=== PATIENT | female | born 1995 | race Caucasian/White ===

== ENCOUNTER → 2019-05-13 | Outpatient (CLI) | payer OTHER, BC ==
[2019-05-14 00:03] LABS: Candida species (DNA Probe) Positive (NEGATIVE); G. vaginalis (DNA Probe) Negative (NEGATIVE); T. vaginalis (DNA Probe) Negative (NEGATIVE)
== END ==
LOC: LAB EV 08:22 → LAB SHORT 08:22
PROVIDERS: Nurse Practitioner Family
DX: Z01.419 Encounter for gynecological examination (general) (routine) without abnormal findings (principal); N89.9 Noninflammatory disorder of vagina, unspecified
CPT/HCPCS: 87480; 87510; 87660; G0145

== ENCOUNTER → 2020-05-24 | Outpatient (CLI) | payer OTHER, BC | LOC: LAB 15:31 → LAB SHORT 15:31 | PROVIDERS: Nurse Practitioner Family | DX: Z01.419 Encounter for gynecological examination (general) (routine) without abnormal findings (principal) | CPT/HCPCS: G0145 ==

== ENCOUNTER → 2022-03-28 | Outpatient (CLI) | payer OTHER, BC | END | disposition home or self-care (01) | LOC: LAB SHORT 19:07 → LAB 19:07 | DX: R30.9 Painful micturition, unspecified (principal) | CPT/HCPCS: 87086 ==

== ENCOUNTER 2025-03-10 23:32 | Inpatient (IN) | payer OTHER, BC ==
[~2025-03-10] VITALS: Ht 165.1 cm; Wt 70.0 kg
[2025-03-10 23:44] VITALS: BP 136/82
[2025-03-11] VITALS (17 sets, daily range): BP systolic 98–140; BP diastolic 42–78
[2025-03-11] MEDS ORDERED: Lactated Ringer's 1,000 ML IV ONE ×3 (00:10→01:25)
[2025-03-11] MEDS ORDERED: CORGARD80 MG PO (00:27)
[2025-03-11] MEDS ORDERED: Acetaminophen 500 MG Tab PO PRN ×2 (00:50→02:45)
[2025-03-11] MEDS ORDERED: FentaNYL 2mcg/ml-Bup 0.1% Epd 250 ML EPI PRN (00:50)
[2025-03-11] MEDS ORDERED: Calcium Carbonate 500 MG Tab Chew PO PRN (00:50)
[2025-03-11] MEDS ORDERED: Lactated Ringer's 1,000 ML IV PRN ×3 (00:50)
[2025-03-11] MEDS ORDERED: Misoprostol 200 MCG Tab BC PRN (00:50)
[2025-03-11] MEDS ORDERED: ePHEDrine Sulfate 50 MG/ML 1ML Injection XX PRN (00:50)
[2025-03-11] MEDS ORDERED: Misoprostol 200 MCG Tab PR PRN ×2 (00:50→02:45)
[2025-03-11] MEDS ORDERED: Carboprost Tromethamine 250 MCG/ML 1ML Amp IM PRN (00:50)
[2025-03-11] MEDS ORDERED: Methylergonovine Maleate 0.2MG / ML 1ML Amp IM PRN (00:50)
[2025-03-11] MEDS ORDERED: OXYTOCIN/RINGER'S LACTATE 500 ML IV PRN (00:50)
[2025-03-11] MEDS ORDERED: Oxytocin 10 Unit / ML Vial IM PRN (00:50)
[2025-03-11] MEDS ORDERED: Tranexamic Acid 100 ML IV PRN (00:50)
[2025-03-11 01:06] LABS: BASOPHILS ABSOLUTE AUTO 0.02 K/mm3 (0.00-0.23); BASOPHILS PERCENT AUTO 0 % (0-2); EOSINOPHILS ABSOLUTE AUTO 0.06 K/mm3 (0.00-0.68); EOSINOPHILS PERCENT AUTO 1 % (0-6); Hematocrit 36.2 % (33.0-51.0); Hemoglobin 12.1 g/dL (11.5-16.0); IMMATURE GRAN ABSOLUTE AUTO 0.03 K/mm3 (0.00-0.10); IMMATURE GRAN PERCENT AUTO 0 % (0-1); LYMPHOCYTES ABSOLUTE AUTO 2.18 K/mm3 (0.84-5.20); LYMPHOCYTES PERCENT AUTO 17 % (21-46); MONOCYTES ABSOLUTE AUTO 0.84 K/mm3 (0.16-1.47); MONOCYTES PERCENT AUTO 6 % (4-13); Mean Corpuscular HGB 30.8 pg (26.0-34.0); Mean Corpuscular HGB Conc 33.4 g/dL (31.5-36.5); Mean Corpuscular Volume 92 fL (80-100); Mean Platelet Volume 10.9 fL (9.1-12.4); NEUTROPHILS ABSOLUTE AUTO 9.97 K/mm3 (1.96-9.15); NEUTROPHILS PERCENT AUTO 76 % (41-73); Platelet Count 242 K/mm3 (150-400); RDW Coefficient Variation 12.6 % (11.7-14.2); RDW Standard Deviation 42.7 fL (35.1-46.3); Red Blood Cell Count 3.93 M/mm3 (3.80-5.20)
[2025-03-11] MEDS ORDERED: Lactated Ringer's 1,000 ML IV SCH ×2 (01:10→02:45)
[2025-03-11] MEDS ORDERED: CeFAZolin Sodium 2,000 MG in NS 100 ML IV SCH (01:10)
[2025-03-11] MEDS ORDERED: Metoclopramide HCl 5MG / ML 2ML Vial ONE (01:21)
[2025-03-11] MEDS ORDERED: Citric Acid/Sodium Citrate 30 ML BTL ONE (01:22)
[2025-03-11] MEDS ORDERED: Ketamine HCl 100 MG / ML 5ML Vial ONE (01:45)
[2025-03-11] MEDS ORDERED: Oxytocin 10 Unit / ML Vial ONE (01:46)
[2025-03-11] MEDS ORDERED: Ketorolac Tromethamine 30mg Vial ONE (01:46)
--- NOTE | 2025-03-11 02:17 | NUR ---
03/11/25 0217 Zeinab Parker VIABLE BABY BOY BORN AT 0149.
[2025-03-11] MEDS ORDERED: HYDROmorphone HCl/Pf 1MG SYR IV PRN (02:20)
[2025-03-11] MEDS ORDERED: FentaNYL Citrate 50 MCG/ML 2 ML Injection IV PRN ×3 (02:20)
[2025-03-11 02:21] LABS: pH Cord - Arterial 7.04 (7.28-7.35)
[2025-03-11 02:22] LABS: PO2 Cord - Arterial < 14.0 mmHg (16-20)
[2025-03-11 02:23] LABS: PCO2 Cord - Venous 49.1 mmHg (40-50); PO2 Cord - Venous 27.5 mmHg (28-32)
[2025-03-11] MEDS ORDERED: OxyCODONE HCL 5 MG TAB PO PRN (02:40)
[2025-03-11] MEDS ORDERED: Lanolin Cream TOP PRN (02:40)
[2025-03-11] MEDS ORDERED: OXYTOCIN/RINGER'S LACTATE 500 ML IV SCH (02:45)
[2025-03-11] MEDS ORDERED: Simethicone 80 MG Chew PO PRN (02:45)
[2025-03-11] MEDS ORDERED: OxyCODONE 5 mg/Acetamin 325 mg TABLET PO PRN (02:45)
[2025-03-11] MEDS ORDERED: Ketorolac Tromethamine 30mg Vial IV SCH (03:00)
[2025-03-11 06:26] LABS: BASOPHILS ABSOLUTE AUTO 0.02 K/mm3 (0.00-0.23); BASOPHILS PERCENT AUTO 0 % (0-2); EOSINOPHILS ABSOLUTE AUTO 0.01 K/mm3 (0.00-0.68); EOSINOPHILS PERCENT AUTO 0 % (0-6); Hematocrit 32.5 % (33.0-51.0); Hemoglobin 10.8 g/dL (11.5-16.0); IMMATURE GRAN ABSOLUTE AUTO 0.06 K/mm3 (0.00-0.10); IMMATURE GRAN PERCENT AUTO 0 % (0-1); LYMPHOCYTES ABSOLUTE AUTO 1.37 K/mm3 (0.84-5.20); LYMPHOCYTES PERCENT AUTO 9 % (21-46); MONOCYTES PERCENT AUTO 6 % (4-13); Mean Corpuscular HGB 30.4 pg (26.0-34.0); Mean Corpuscular HGB Conc 33.2 g/dL (31.5-36.5); Mean Corpuscular Volume 92 fL (80-100); Mean Platelet Volume 10.7 fL (9.1-12.4); NEUTROPHILS ABSOLUTE AUTO 12.57 K/mm3 (1.96-9.15); NEUTROPHILS PERCENT AUTO 84 % (41-73); Platelet Count 215 K/mm3 (150-400); RDW Coefficient Variation 12.6 % (11.7-14.2); RDW Standard Deviation 42.2 fL (35.1-46.3); Red Blood Cell Count 3.55 M/mm3 (3.80-5.20); White Blood Cell Count 14.93 K/mm3 (4.00-11.30)
[2025-03-11] MEDS ORDERED: Ibuprofen 400 MG Tab PO SCH (08:00)
[2025-03-11] MEDS ORDERED: Docusate Sodium 100 MG Cap PO SCH (09:00)
[2025-03-11] MEDS ORDERED: Prenatal Vit/FE Fumarate/FA 1 Tab PO SCH (09:00)
[2025-03-12 03:22] VITALS: BP 101/57
[2025-03-12 08:23] VITALS: BP 112/58
[2025-03-12] MEDS ORDERED: Polyethylene Glycol 3350 17 gm PO ONE (08:50)
[2025-03-12 11:12] VITALS: BP 107/78
[2025-03-12 18:37] VITALS: BP 112/56
[2025-03-12 20:19] VITALS: BP 118/63
[2025-03-12 23:47] VITALS: BP 111/67
[2025-03-13 05:54] VITALS: BP 108/66
[2025-03-13 08:46] VITALS: BP 124/59
[2025-03-13 11:33] VITALS: BP 139/63
[2025-03-13] MEDS ORDERED: Percocet 5-3251 EACH PO (13:47)
[2025-03-13] MEDS ORDERED: PRENATAL TABLE1 EAC2 PO (13:47)
[2025-03-13] MEDS ORDERED: IBUP800 PO (13:47)
[2025-03-13 15:59] VITALS: BP 126/65
== END 2025-03-13 16:09 | disposition home or self-care (01) | DRG 785 ==
LOC: OBS 23:32 → BC 23:34 → OBS 03-11 00:54 → BC 03-11 00:54
PROVIDERS: ADMIT Obstetrics & Gynecology
PROC: 10D00Z1 Extraction of Products of Conception, Low, Open Approach (ICD-10-PCS; principal; 2025-03-11 09:00)
PROC: 0UT70ZZ Resection of Bilateral Fallopian Tubes, Open Approach (ICD-10-PCS; 2025-03-11 09:00)
DX: O69.81X0 Labor and delivery complicated by cord around neck, without compression, not applicable or unspecified (principal); Z30.2 Encounter for sterilization; Z3A.37 37 weeks gestation of pregnancy; Z37.0 Single live birth
CPT/HCPCS: 36415; 59025; 81003; 82803; 85025; 86850; 86900; 86901; 86920; 88302; 99214; A9270; J0690; J1885; J2590; J7120

== ENCOUNTER 2025-03-19 15:13 | Inpatient (IN) | payer OTHER, BC ==
[~2025-03-19] VITALS: Ht 165.1 cm; Wt 66.0 kg
[2025-03-19] VITALS (10 sets, daily range): BP systolic 110–144; BP diastolic 62–84
[~2025-03-19 15:13] MED LIST: CORGARD80 MG PO; IBUP800 PO; PRENATAL TABLE1 EAC2 PO; Percocet 5-3251 EACH PO
[2025-03-19] MEDS ORDERED: Labetalol HCL 5 MG/ML 20MLVIAL IV STA (16:03)
[2025-03-19] MEDS ORDERED: Labetalol HCL 5 MG/ML 20MLVIAL IV SCH (16:05)
[2025-03-19] MEDS ORDERED: Labetalol HCL 5 MG/ML 4ML Injection (Single Dose) IV STA (16:08)
[2025-03-19] MEDS ORDERED: Labetalol HCL 5 MG/ML 4ML Injection (Single Dose) IV SCH (16:10)
[2025-03-19 16:20] LABS: BASOPHILS ABSOLUTE AUTO 0.05 K/mm3 (0.00-0.23); BASOPHILS PERCENT AUTO 1 % (0-2); EOSINOPHILS ABSOLUTE AUTO 0.08 K/mm3 (0.00-0.68); EOSINOPHILS PERCENT AUTO 1 % (0-6); Hemoglobin 12.2 g/dL (11.5-16.0); IMMATURE GRAN ABSOLUTE AUTO 0.04 K/mm3 (0.00-0.10); IMMATURE GRAN PERCENT AUTO 1 % (0-1); LYMPHOCYTES ABSOLUTE AUTO 2.21 K/mm3 (0.84-5.20); LYMPHOCYTES PERCENT AUTO 28 % (21-46); MONOCYTES ABSOLUTE AUTO 0.49 K/mm3 (0.16-1.47); MONOCYTES PERCENT AUTO 6 % (4-13); Mean Corpuscular HGB 30.5 pg (26.0-34.0); Mean Corpuscular Volume 93 fL (80-100); Mean Platelet Volume 10.4 fL (9.1-12.4); NEUTROPHILS ABSOLUTE AUTO 5.15 K/mm3 (1.96-9.15); NEUTROPHILS PERCENT AUTO 64 % (41-73); Platelet Count 407 K/mm3 (150-400); RDW Coefficient Variation 12.2 % (11.7-14.2); RDW Standard Deviation 41.2 fL (35.1-46.3); White Blood Cell Count 8.02 K/mm3 (4.00-11.30)
[2025-03-19 16:23] LABS: Albumin, Blood 3.7 g/dL (3.4-5.0); Albumin/Globulin Ratio 0.9 (0.8-1.8); Bilirubin, Total 0.3 mg/dL (0.1-1.0); Bun/Creatinine Ratio 20.9 (12.0-20.0); Calcium, Blood 9.7 mg/dL (8.5-10.1); Creatinine, Blood 0.86 mg/dL (0.40-1.00); Globulin, Blood 4.3 g/dL (2.2-4.0); Magnesium, Blood 2.2 mg/dL (1.6-2.4); Potassium, Blood 3.9 mmol/L (3.5-5.5)
[2025-03-19 17:36] LABS: Source, Urine Clean Catch
[2025-03-19 17:41] LABS: Appearance, Urine Clear (Clear); Bilirubin, Urine Neg (Neg); Blood, Urine 5+ (Neg); Glucose Qualitative, Urine Neg (Neg); Ketones, Urine Neg (Neg); Leukocyte Esterase, Urine 1+ (Neg); Nitrite, Urine Neg (Neg); Protein, Urine Neg (Neg); Specific Gravity, Urine 1.015 (1.003-1.022); Urobilinogen, Urine NORM (Normal)
[2025-03-19] MEDS ORDERED: Magnesium Sulf 2 GM/Water 50ML 50 ML IV SCH (18:15)
[2025-03-19] MEDS ORDERED: Calcium Gluconate 0.465 mEq/ml 10 ml Vial IV PRN ×2 (18:15→19:35)
[2025-03-19] MEDS ORDERED: Lactated Ringer's 1,000 ML IV SCH ×2 (18:15→19:35)
[2025-03-19] MEDS ORDERED: Magnesium Sulfate 500 ML IV SCH (18:15)
[2025-03-19] MEDS ORDERED: Magnesium Sul 4 GM/Water100 ML 100 ML IV ONE ×2 (18:15→18:18)
[2025-03-19] MEDS ORDERED: Magnesium Sulfate 500 ML IV ONE (18:19)
[2025-03-19 18:35] LABS: Color, Urine Pale Yellow (P-Yellow)
[2025-03-19 18:38] LABS: Squamous Epithelial Cells Rare /hpf (Few)
[2025-03-19 18:40] LABS: Bacteria Rare /hpf; Mucus Light (0-Heavy)
[2025-03-19 18:41] LABS: Hyaline Casts 0-2 /lpf (0-2)
[2025-03-19] MEDS ORDERED: Labetalol HCL 5 MG/ML 4ML Injection (Single Dose) IV ONE (19:35)
[2025-03-19] MEDS ORDERED: Labetalol HCL 5 MG/ML 4ML Injection (Single Dose) IV PRN ×2 (19:35)
--- NOTE | 2025-03-19 20:12 | NUR ---
RN CALLED [facility] AFTER PLACING CONT SINGER AND UNLOADER ON PT, TELE REPORTS NSR WITH A RATE OF 70 BPM AND RN REPORTED TO TAX FORM PREPARER THAT THE PT DOES HAVE A PACEMAKER.
[2025-03-19] MEDS ORDERED: Acetaminophen 500 MG Tab PO PRN (21:45)
[2025-03-19] MEDS ORDERED: Ibuprofen 400 MG Tab PO PRN (21:45)
[2025-03-20] VITALS (22 sets, daily range): BP systolic 107–154; BP diastolic 62–100
--- NOTE | 2025-03-20 00:41 | NUR ---
KELSEY FROM TELE CALLED RN AT APPROX 0020 TO REPORT THAT PT'S PROLONGATION IS AT .61 (610). RN THEN WENT TO PT'S ROOM AND INQUIRED IF SHE KNEW HER BASELINE PROLONGATION WAS. PT REPORTED HER PROLONGATION WAS [phone]. RN THEN CALLED DR JOHNSON FOR AN SBAR. NEW ORDERS TO LOWER MAG INFUSION TO 1G FROM 2G AND THE SHE COULD CONSULT THE MULTIPLE COIL WINDER IN THE AM. AFTER RN CHANGED INFUSIUON RATE, RN CALLED ICU CHARGE NURSE CATHERINE AND CONSULTED HER ABOUT THE SITUATION. ICU CHARGE NURSE NOT ALARMED BUT WARDS TO WATCH PT CLOSELY FOR ANY NEW CONCERNING SIGNS/SYMPTOMS AND THAT ICU COULD CONSULT THE MULTIPLE COIL WINDER IF WOULD PLACE A CARDIO REFFERAL.
--- NOTE | 2025-03-20 00:55 | NUR ---
RN HAD DISCUSSION WITH PT ABOUT REPORTING ANY NEW SIGNS OR SYMPTOMS THAT MAY HAPPEN. RN TOLD PT THAT THERE IS A LOADING SUPERVISOR IN HOUSE THAT WOULD LOOK AT HER CASE IF DR JOHNSON DID END UP ORDERING A REFFERAL TONIGHT. PT VERBALIZES UNDERSTANDING TO REPORT ANY NEW SIGNS OR SYMPTOMS TO RN.
--- NOTE | 2025-03-20 06:32 | NUR ---
call up to cable television program director to see what prolongation is: .61 this is the same measurement as middle of noc shift on 03/20/25
--- NOTE | 2025-03-20 13:17 | NUR ---
PT WALKED JOYCE WITH RN. PT STATES SHE FEELS OKAY JUST A LITTLE SLUGGISH. PT DID NOT EXPERINCE ANY SOB OR DIZZNESS WHILE WALKING.
--- NOTE | 2025-03-20 14:25 | NUR ---
ARRIVAL PATIENT ARRIVES TO UNIT VIA WHEELCHAIR AND AMBULATED OVER TO BED WITHOUT NEEDING TO MUCH HELP. VITAL SIGNS TAKEN, BLOOD PRESSURE ELVATED WITH 154/85 106 MAP. PATIENT IS ANXIOUS AND AT THE EDGE OF THE BED. HAS NOTIFIED FAMILY ABOUT THE MOVE.
--- NOTE | 2025-03-20 14:35 | NUR ---
PATIENT CALLED NURSE INTO ROOM STATING SHE IS FEELING SOME PVC. FORK ASSEMBLER CALLED AND NO PVC WERE NOTED PT WAS SINUS RHYTHM IN THE 60'S WITH QT INTERVAL OF .56. AT 1354 FORK ASSEMBLER CALLED BACK AND PATIENT HAD COUPLETS AND A RUN OF PVC. AT 1356 FORK ASSEMBLER CALLED BACK AND STATE PT HAD A RUN OF V-TACH. DR JOHNSON NOTIFIED, WHEN ON THE PHONE FORK ASSEMBLER CALLED AND STATE PATIENT HAD ANOTHER RUN OF V-TACH. DR JOHNSON GAVE ORDER FOR PT TO BE TRANSFERED TO PCU AND FOR A CARDIOLOGY CONSULT. PT TRANSFERED UP TO PCU IN WHEELCHAIR TO PCU 15 AND BEDSIDE REPORT GIVEN TO RN.
--- NOTE | 2025-03-20 15:39 | NUR ---
MD ROUNDED: DIRECTOR SEARCH MARKETING STRATEGIES ROUNDED AND ORDERED EKG & ECHO TO BE DONE. MD STATED ANY PROBLEMS REGARIDNG PATIENTS BLOOD PRESSURE TO NOTIFY ISAIAH, PRIMARY OBGYN SHE WILL MAKE THE DECISION TO ADD ANY NEEDED BLOOD PRESSURE MEDICATINS.
--- NOTE | 2025-03-20 16:53 | NUR ---
SHIFT SUMMARY: PATIENT ARRIVES TO UNIT VIA WHEELCHAIR AND FAMILY AT BEDSIDE. PATIENT ANXIOUS UPON ARRIVAL AND ASKING WHAT THE GAME PLAN IS MOVING FORWARD. PATIENT BLOOD PRESSURE CYCLING AND LEVELING OUT WITH SYSTOLIC IN 120'S. PATIENT WAS SEEN BY SUPERVISOR THROWING DEPARTMENT, SEE NOTE FOR MORE INFORMATION. OB WILL BE CONTACTED IF BLOOD PRESSURE CONTINUES TO BE ELEVATED. [facility] CAME BY AND CHATED WITH PATIENT & FAMILY. PLAN WILL BE TO CONTINUE TO MONITOR, PATIENT HAS CALL LIGHT WITHIN REACH & BED IN LOWEST POSITION, STATING NOTHING IS NEEDED AT THIS TIME.
--- NOTE | 2025-03-20 21:52 | NUR ---
NURSE NOTE DR. GUILLEN CALLED VIA PHONE REQUEST THIS RN TO GIVE 80 MG NADOLOL NOW INSTEAD OF WAITING UNTIL 0000 MIDNIGHT DOES. PATIENT TO REPEAT 80MG DOSE AT 0900 AND 2100 STARTING TOMORROW 03/21 AND FOLLOW THAT SCHEDULE FOR THIS HOME MEDICATION. PT IS HAVINF FREQUENT PVC'S (BIGEMINY), RUNS OF VTACH, AND INCREASE IN HEART RATE ABOVE 130. PATIENT STATES SHE FEELS FINE AT THIS MOMENT AND WAS SLEEPING WHEN THIS RN ENTERED THE ROOM TO GIVE NADOLOL.
[2025-03-21] VITALS (13 sets, daily range): BP systolic 92–141; BP diastolic 62–91
--- NOTE | 2025-03-21 02:10 | NUR ---
NURSE NOTE PATIENT UP TO BATHROOM AMBULATING WITH LITTLE ASSISTANCE DUE TO LINES. HR IN THE 60'S CURRENTLY. PT DENIES PAIN OF ANY KIND. BP STABLE LAST OF 108/67 MAP 81. AMRIK PO INTAKE, URINATING W/O DIFFICULTY. LR INFUSING PER EMAR. PT CURRENTLY SITTING UP IN BED ON HER CELL PHONE NOW. BED IN LOWEST POSTION FOR SAFETY, CALL LIGHT IN REACH.
--- NOTE | 2025-03-21 05:36 | NUR ---
NURSE NOTE HEAD HOLDER GLADYS ALERTED BREAK NURSE TO PT HAVING A 26 BEAT RUN OF V-TACH. PATIENT IS SLEEPING WHEN THIS RN WENT TO ASSESS PT. LAST BP OF 105/65 MAP OF 74. AFTER RUN OF V-TACH PT WENT BACK INTO SINUS AT A RATE OF 69 CURRENTLY.
--- NOTE | 2025-03-21 06:24 | NUR ---
NURSE NOTE MD GUILLEN ROUNDED ON PT THIS AM TO MAKE MEDICATION ADJUSTMENTS. SIGNED OFF FROM A CARDIOLOGY STAND POINT.
[2025-03-21] MEDS ORDERED: NADOLOL 80 MG PO SCH (09:00)
[2025-03-21] MEDS ORDERED: Potassium Chloride 20 MEQ TabCR PO ONE (12:10)
--- NOTE | 2025-03-21 17:58 | NUR ---
SHIFT SUMMARY: PT A&OX4 CALM AND COOPERATIVE. MAINTAINING >94% ON RA. SR 90S WITH OCCASIONAL PVCS AND RUNS OF VTACH. DR. FALLON ADJUSTED HOME MED TO 120MG BID. SBP 120S-140S. MEDICATED PER EMAR. 1 WEEK SLIGHT HEMATURIA. IND TO BATHROOM. CALLS APPROPRIATELY. LR INFUSING 75/HR. BED IS LOW AND LOCKED. WILL CONTINUE PLAN OF CARE UNTIL REPORT GIVEN TO NOC NURSE.
[2025-03-21] MEDS ORDERED: NIFEdipine 10 MG Cap PO ONE (18:40)
[2025-03-22 04:08] VITALS: BP 124/87
[2025-03-22 04:56] LABS: Bun/Creatinine Ratio 13.8 (12.0-20.0); Creatinine, Blood 0.87 mg/dL (0.40-1.00); Potassium, Blood 4.2 mmol/L (3.5-5.5)
--- NOTE | 2025-03-22 06:17 | NUR ---
SHIFT SUMMARY PATIENT A&OX4. VITAL SIGNS STABLE. PATIENT STATED HAVING A HEADACHE, MEDICATED PER EMAR. PATIENT ON ROOM AIR. WILL CONTINUE TO MONITOR.
[2025-03-22 08:04] VITALS: BP 143/88
[2025-03-22 11:30] VITALS: BP 123/85
--- NOTE | 2025-03-22 14:51 | NUR ---
SHIFT SUMMARY: PT A&OX4 CALM AND COOPERATIVE. SR 60S. SBP 110S-120S. MAINTAINING >94% ON ROOM AIR. INDEPENDENT TO BATHROOM. USES CALL LIGHT APPROPRIATELY. NO RUNS OF VTACH DURING SHIFT. PT EDUCATED ON DISCHARGE AND MEDS SENT TO REQUESTD PHARMACY. PT VERBALIZED EDUCATION AND DISCHARGED WITH PRESENT.
== END 2025-03-22 14:32 | disposition home or self-care (01) | DRG 776 ==
LOC: ER 15:13 → BC 17:57 → PCU 17:57 → BC 19:59 → PCU 03-20 14:13
PROVIDERS: Internal Medicine Cardiovascular Disease; Student in an Organized Health Care Education/Training Program; ADMIT Obstetrics & Gynecology
DX: O99.43 Diseases of the circulatory system complicating the puerperium (principal); I47.20 Ventricular tachycardia, unspecified; I45.81 Long QT syndrome; O99.345 Other mental disorders complicating the puerperium; F41.1 Generalized anxiety disorder; O14.95 Unspecified pre-eclampsia, complicating the puerperium; Z95.810 Presence of automatic (implantable) cardiac defibrillator; Z88.8 Allergy status to other drugs, medicaments and biological substances
CPT/HCPCS: 36415; 80048; 80053; 81001; 83615; 83735; 85025; 86850; 86900; 86901; 86923; 93005; 93010; 93306; 96374; 96376; 99285-25; A9270; J3475; J7120

== ENCOUNTER 2025-03-22 19:40 | Observation (INO) | payer OTHER, BC ==
[~2025-03-22] VITALS: Ht 165.1 cm; Wt 63.4 kg
[2025-03-22 20:35] LABS: BASOPHILS ABSOLUTE AUTO 0.07 K/mm3 (0.00-0.23); BASOPHILS PERCENT AUTO 1 % (0-2); EOSINOPHILS PERCENT AUTO 1 % (0-6); Hematocrit 37.1 % (33.0-51.0); Hemoglobin 12.6 g/dL (11.5-16.0); IMMATURE GRAN ABSOLUTE AUTO 0.03 K/mm3 (0.00-0.10); IMMATURE GRAN PERCENT AUTO 0 % (0-1); LYMPHOCYTES ABSOLUTE AUTO 2.67 K/mm3 (0.84-5.20); LYMPHOCYTES PERCENT AUTO 25 % (21-46); MONOCYTES ABSOLUTE AUTO 0.65 K/mm3 (0.16-1.47); MONOCYTES PERCENT AUTO 6 % (4-13); Mean Corpuscular HGB 31.1 pg (26.0-34.0); Mean Corpuscular Volume 92 fL (80-100); Mean Platelet Volume 9.6 fL (9.1-12.4); NEUTROPHILS ABSOLUTE AUTO 7.17 K/mm3 (1.96-9.15); NEUTROPHILS PERCENT AUTO 67 % (41-73); Platelet Count 366 K/mm3 (150-400); RDW Coefficient Variation 12.2 % (11.7-14.2); RDW Standard Deviation 41.1 fL (35.1-46.3); Red Blood Cell Count 4.05 M/mm3 (3.80-5.20); White Blood Cell Count 10.69 K/mm3 (4.00-11.30)
[2025-03-22 20:54] LABS: Albumin, Blood 3.6 g/dL (3.4-5.0); Albumin/Globulin Ratio 0.9 (0.8-1.8); Bilirubin, Total 0.3 mg/dL (0.1-1.0); Bun/Creatinine Ratio 15.7 (12.0-20.0); Calcium, Blood 9.1 mg/dL (8.5-10.1); Creatinine, Blood 0.89 mg/dL (0.40-1.00); Globulin, Blood 3.9 g/dL (2.2-4.0); Magnesium, Blood 2.1 mg/dL (1.6-2.4); Potassium, Blood 3.9 mmol/L (3.5-5.5); Total Protein, Blood 7.5 g/dL (6.4-8.2)
[2025-03-22 21:22] LABS: Source, Urine Clean Catch
[2025-03-22 21:39] LABS: Appearance, Urine Hazy (Clear); Bilirubin, Urine Neg (Neg); Blood, Urine 5+ (Neg); Color, Urine Red (P-Yellow); Glucose Qualitative, Urine Neg (Neg); Ketones, Urine Neg (Neg); Leukocyte Esterase, Urine 3+ (Neg); Nitrite, Urine Pos (Neg); Protein, Urine 2+ (Neg); Specific Gravity, Urine 1.015 (1.003-1.022); Urobilinogen, Urine NORM (Normal); pH, Urine 6.5 (5.0-8.0)
[2025-03-22 21:47] LABS: Amorphous Light (0-Heavy); Bacteria Few /hpf; Red Blood Cells, Urine TNTC /hpf (0-2); Squamous Epithelial Cells Rare /hpf (Few)
[2025-03-22] MEDS ORDERED: MAGNESIUM SULF IV ONE (22:35)
[2025-03-22] MEDS ORDERED: Labetalol HCL 5 MG/ML 4ML Injection (Single Dose) IV ONE ×2 (22:35→23:20)
[2025-03-22] MEDS ORDERED: WATER IV ONE (22:35)
[2025-03-23] VITALS (11 sets, daily range): BP systolic 84–142; BP diastolic 46–86
[2025-03-23] MEDS ORDERED: HydrALAZINE HCl 20 MG / ML 1ML Vial IV PRN (01:35)
[2025-03-23] MEDS ORDERED: Acetaminophen 325 MG TABLET PO PRN (04:25)
[2025-03-23 04:35] LABS: BASOPHILS ABSOLUTE AUTO 0.05 K/mm3 (0.00-0.23); BASOPHILS PERCENT AUTO 1 % (0-2); EOSINOPHILS ABSOLUTE AUTO 0.09 K/mm3 (0.00-0.68); EOSINOPHILS PERCENT AUTO 1 % (0-6); Hematocrit 35.5 % (33.0-51.0); Hemoglobin 11.8 g/dL (11.5-16.0); IMMATURE GRAN ABSOLUTE AUTO 0.02 K/mm3 (0.00-0.10); IMMATURE GRAN PERCENT AUTO 0 % (0-1); LYMPHOCYTES ABSOLUTE AUTO 2.42 K/mm3 (0.84-5.20); LYMPHOCYTES PERCENT AUTO 27 % (21-46); MONOCYTES ABSOLUTE AUTO 0.54 K/mm3 (0.16-1.47); MONOCYTES PERCENT AUTO 6 % (4-13); Mean Corpuscular HGB 30.4 pg (26.0-34.0); Mean Corpuscular HGB Conc 33.2 g/dL (31.5-36.5); Mean Corpuscular Volume 92 fL (80-100); Mean Platelet Volume 9.8 fL (9.1-12.4); NEUTROPHILS ABSOLUTE AUTO 6.02 K/mm3 (1.96-9.15); NEUTROPHILS PERCENT AUTO 66 % (41-73); Platelet Count 348 K/mm3 (150-400); RDW Coefficient Variation 12.2 % (11.7-14.2); RDW Standard Deviation 40.5 fL (35.1-46.3); Red Blood Cell Count 3.88 M/mm3 (3.80-5.20); White Blood Cell Count 9.14 K/mm3 (4.00-11.30)
[2025-03-23 04:57] LABS: Albumin, Blood 3.4 g/dL (3.4-5.0); Albumin/Globulin Ratio 0.9 (0.8-1.8); Bilirubin, Total 0.4 mg/dL (0.1-1.0); Bun/Creatinine Ratio 16.2 (12.0-20.0); Calcium, Blood 9.1 mg/dL (8.5-10.1); Creatinine, Blood 0.74 mg/dL (0.40-1.00); Globulin, Blood 3.7 g/dL (2.2-4.0); Potassium, Blood 3.9 mmol/L (3.5-5.5); Total Protein, Blood 7.1 g/dL (6.4-8.2)
[2025-03-23] MEDS ORDERED: NIFEdipine 30 MG TabCR PO ONE (05:00)
--- NOTE | 2025-03-23 06:06 | NUR ---
SHIFT SUMMARY PT ARRIVED TO [facility] @ 0330. A&OX4. VSS ON RA. 130s/90s. PT C/O MILD HEADACHE. PRN TYLENOL GIVEN WITH GOOD EFFECT. PT ON TELE NSR IN 70s. PT STATES SHE FELT SLIGHTLY DIZZY, FOOD GIVEN SINCE PT SAID SHE DIDNT EAT ALL DAY. FELT BETTER AFTER HAVING SOME FOOD. NO FURTHER QUESTIONS OR CONCERNS AT THIS TIME. PT RESTING COMFORTABLY IN BED. WILL CONTINUE WITH PLAN OF CARE.
[2025-03-23] MEDS ORDERED: NIFEdipine 30 MG TabCR PO SCH (08:40)
[2025-03-23] MEDS ORDERED: Misc. Tablet PO SCH (09:00)
--- NOTE | 2025-03-23 18:42 | NUR ---
End of shift note. Pt has had a decent day. Pt is ready to go home as soon as she is able but is very understanding about not wanting to get readmitted again. Pt was OOB for a shower this morning. Walking in the halls. BPs have been stable; with addition of new med. NSR/SB Cardiology was consulted. Will continue on current regimen. Trending BPs. Pt is able to make needs known, call light is within reach.
[2025-03-24] VITALS (9 sets, daily range): BP systolic 102–129; BP diastolic 60–84
--- NOTE | 2025-03-24 04:21 | NUR ---
SHIFT SUMMARY- SYSTOLIC BP'S HAVE BEEN NEAR 120 THROUGHOUT THE NIGHT. ONE LOW BP AT 2300, SYSTOLIC IN THE 80'S WHILE PT ON LEFT SIDE. PT HAD C/O OF HEADACHE AT THAT TIME.
[2025-03-24 04:50] LABS: BASOPHILS ABSOLUTE AUTO 0.07 K/mm3 (0.00-0.23); BASOPHILS PERCENT AUTO 1 % (0-2); EOSINOPHILS ABSOLUTE AUTO 0.14 K/mm3 (0.00-0.68); EOSINOPHILS PERCENT AUTO 2 % (0-6); Hematocrit 37.3 % (33.0-51.0); Hemoglobin 12.4 g/dL (11.5-16.0); IMMATURE GRAN ABSOLUTE AUTO 0.03 K/mm3 (0.00-0.10); IMMATURE GRAN PERCENT AUTO 0 % (0-1); LYMPHOCYTES PERCENT AUTO 32 % (21-46); MONOCYTES ABSOLUTE AUTO 0.68 K/mm3 (0.16-1.47); MONOCYTES PERCENT AUTO 8 % (4-13); Mean Corpuscular HGB 30.8 pg (26.0-34.0); Mean Corpuscular HGB Conc 33.2 g/dL (31.5-36.5); Mean Corpuscular Volume 93 fL (80-100); Mean Platelet Volume 10.6 fL (9.1-12.4); NEUTROPHILS ABSOLUTE AUTO 4.94 K/mm3 (1.96-9.15); NEUTROPHILS PERCENT AUTO 58 % (41-73); Platelet Count 349 K/mm3 (150-400); RDW Standard Deviation 41.1 fL (35.1-46.3); Red Blood Cell Count 4.02 M/mm3 (3.80-5.20); White Blood Cell Count 8.56 K/mm3 (4.00-11.30)
[2025-03-24 05:16] LABS: Albumin, Blood 3.4 g/dL (3.4-5.0); Albumin/Globulin Ratio 0.9 (0.8-1.8); Bilirubin, Total 0.4 mg/dL (0.1-1.0); Calcium, Blood 9.3 mg/dL (8.5-10.1); Creatinine, Blood 0.84 mg/dL (0.40-1.00); Globulin, Blood 3.7 g/dL (2.2-4.0); Potassium, Blood 3.6 mmol/L (3.5-5.5); Total Protein, Blood 7.1 g/dL (6.4-8.2)
[2025-03-24 05:23] LABS: Magnesium, Blood 2.2 mg/dL (1.6-2.4)
[2025-03-24] MEDS ORDERED: NIFEdipine 30 MG TabCR PO SCH ×2 (07:00→09:00)
[2025-03-24] MEDS ORDERED: Enoxaparin 40 MG/0.4 ML SYR SC SCH (09:00)
[2025-03-24] MEDS ORDERED: Potassium Chloride 20 MEQ TabCR PO ONE (09:00)
[2025-03-24] MEDS ORDERED: NIFE30ER PO ×2 (09:44)
--- NOTE | 2025-03-24 11:24 | NUR ---
SHIFT/DISCHARGE SUMMARY PATIENT WAS TRANSPORTED IN WHEELCHAIR BY THE CROP SCOUT, COMPLETED ROOM CHECK WITH PATIENT BEFORE THE PATIENT LEFT, IV REMOVED, AND DISCHARGE INSTRUCTIONS REVIEWED WITH PATIENT. FOLLOW-UP APPOINTMENT SCHEDULED.
== END 2025-03-24 11:24 | disposition home or self-care (01) ==
LOC: ER 19:40 → PCU 19:41 → ERHOLD 19:41 → PCU 03-23 03:52
PROVIDERS: Family Medicine; Student in an Organized Health Care Education/Training Program; ADMIT Student in an Organized Health Care Education/Training Program
DX: O11.5 Pre-existing hypertension with pre-eclampsia, complicating the puerperium (principal); I45.81 Long QT syndrome
CPT/HCPCS: 36415; 80053; 81001; 83735; 85025; 87086; 93005; 93010; 96374; 96376; 99284-25; A9270; G0378

== ENCOUNTER → 2025-03-25 | Outpatient (CLI) | payer OTHER, BC ==
[~2025-03-25] MED LIST changes: +NIFE30ER PO
[2025-03-25 12:28] LABS: Creatinine, Urine Random 73.8 mg/dL (27.00-270.00); Protein, Urine Random 13.6 mg/dL (0.0-11.9); Protein/Creat Ratio, Ur Random 0.2
== END ==
LOC: LAB 10:41 → LAB SHORT 10:41
PROVIDERS: Family Medicine
DX: Z87.59 Personal history of other complications of pregnancy, childbirth and the puerperium (principal)
CPT/HCPCS: 82570; 84156